=== PATIENT | male | born 1940 | race Hispanic/Latino ===

== ENCOUNTER 2019-11-10 06:28 | Day surgery (SDC) | payer OTHER, MEDICARE ==
[~2019-11-10] VITALS: Ht 160 cm; Wt 90.7 kg
[~2019-11-10 06:28] MED LIST: METF-527 PO; SODIUM CHLORIDE 0.9% 1000ML 1,000 ML IV ONE
[2019-11-10 07:31] VITALS: BP 175/71
[2019-11-10 07:36] LABS: BASOPHILS % (AUTO) 0.7 % (0.0-5.0); HEMATOCRIT 38.4 % (42-54); MEAN CORPUSCULAR HEMOGLOBIN 29.9 pg (27.0-33.0); MEAN CORPUSCULAR HGB CONC 33.6 g/dL (32.0-36.0); MEAN CORPUSCULAR VOLUME 89.1 fL (79-99); MONOCYTES % (AUTO) 8.1 % (3.0-13.0); NEUTROPHILS % (AUTO) 62.9 % (40.0-77.0); PLATELET COUNT (AUTO) 230 K/uL (130-400); RED BLOOD CELL COUNT(AUTO) 4.31 MIL/uL (4.50-6.20); RED CELL DISTRIBUTION WIDTH 11.9 % (11.0-15.5)
[2019-11-10] MEDS ORDERED: SIMV-46 PO (07:43)
[2019-11-10] MEDS ORDERED: RAMI10CA69 PO (07:43)
[2019-11-10] MEDS ORDERED: ASPI-555 PO (07:43)
[2019-11-10 07:46] LABS: INR 1.02 (0.85-1.15); PROTHROMBIN TIME 10.7 SEC (9.6-11.6)
[2019-11-10] MEDS ORDERED: LIDOCAINE HCL 1% 20 ML VIAL ONE (08:57)
[2019-11-10] MEDS ORDERED: PROPOFOL 10 MG/ML 20ML VIAL IV ONE ×2 (08:57→09:14)
[2019-11-10 09:21] VITALS: BP 105/64
[2019-11-10 09:26] VITALS: BP 125/65
[2019-11-10 09:32] VITALS: BP 128/69
[2019-11-10 09:39] VITALS: BP 133/69
[2019-11-10 09:45] VITALS: BP 134/77
== END 2019-11-10 09:56 | disposition home or self-care (01) ==
LOC: ENDO 06:28 → DAH 06:28 → ENDO 09:56
PROVIDERS: ATTEND Internal Medicine
DX: K31.7 Polyp of stomach and duodenum (principal); K29.50 Unspecified chronic gastritis without bleeding; I10 Essential (primary) hypertension; E78.00 Pure hypercholesterolemia, unspecified; E11.9 Type 2 diabetes mellitus without complications; Z79.82 Long term (current) use of aspirin; Z79.899 Other long term (current) drug therapy; Z79.84 Long term (current) use of oral hypoglycemic drugs; Z72.89 Other problems related to lifestyle; Z86.73 Personal history of transient ischemic attack (TIA), and cerebral infarction without residual deficits
CPT/HCPCS: 36415; 43237; 43239; 82948 ×2; 85025; 85610; 88305; A4215; A4221; A4222; A4223; A4606; A4620; A4663; J2704 ×2; J7030